=== PATIENT | male | born 1970 | race Caucasian/White ===

== ENCOUNTER 2018-09-30 18:43 | Emergency (ER) | payer OTHER ==
--- NOTE | 2018-09-30 18:53 | UC ---
Eye Complaint HPI - HPI Summary HPI Summary: Patient is a 47 year old gentleman , who presents today to the urgent care with right eye is pain for past 2 days. He reports that he was in [place] and on Sunday night he started noticing itchiness in the right eye and gradually it has become more swollen . Swelling has progressed to his right ear and has also started noticing a rash which is on the forehead, left elbow and on his penis. He takes valacyclovir daily as preventative for his cold sores. Denies any sick contact that he knows off. He is no monogamous relationship and his does not have any symptoms. He does have pain with eye movements. He has no fever , chills, cough, chest pain or shortness of breath. Denies any other symptoms. Denies any conjunctival redness, irritation, increased lacrimation. He reports that his vision is completely fine otherwise. - History of Current Complaint Stated Complaint: EYE COMPLAINT Time Seen by Provider: 09/30/18 18:45 Hx Obtained From: Patient - Allergies/Home Medications Allergies/Adverse Reactions: Allergies Allergy/AdvReac Type Severity Reaction Status Date / Time No Known Allergies Allergy Verified 09/30/18 18:55 PMH/Surg Hx/FS Hx/Imm Hx - Additional Past Medical History Additional PMH: Past Medical History : Hypertension, ulcerative colitis, GERD Past Surgical History: Hernia Family History : Noncontributory Social History : Occasional alcohol, former smoker, no drug use. works at [employer] . Previously Healthy: Yes - Social History Alcohol Use: Occasionally Substance Use Type: None Smoking Status (MU): Former Smoker Have You Smoked in the Last Year: No When Did the Patient Quit Smoking/Using Tobacco: quit 20 yrs ago Review of Systems All Other Systems Reviewed And Are Negative: Yes Constitutional: Positive: Negative Skin: Positive: Rash - Noticed on forehead, left elbow and penis Eyes: Positive: Other - Swelling of the eyelids. Negative: Blurred Vision, Diplopia, Drainage, Eye Redness, Photophobia ENT: Positive: Other - Swelling of the year Respiratory: Positive: Negative. Negative: Cough Cardiovascular: Positive: Negative Gastrointestinal: Positive: Negative Genitourinary: Positive: Negative Motor: Positive: Negative Neurovascular: Positive: Negative Musculoskeletal: Positive: Negative Neurological: Positive: Negative Psychological: Positive: Negative Is Patient Immunocompromised?: No Physical Exam - Summary Physical Exam Summary: Physical Exam: Const: Appears well. No signs of apparent distress present. Alert and oriented x 3. Musculo: Walks with a normal gait. Head/Face: Atraumatic, normocephalic on inspection. Swelling is noted on the right side of the upper half of the face, right eye lids and the right ear Eyes: EOMI and PERRLA in both eyes. Conjunctivae clear. No discharge noted . Extraocular motion is painful but complete ENT: Hearing normal, right ear pinnae is swollen. TM normal appearing bilaterally Respiratory: Respirations are unlabored. Lungs clear to auscultation bilaterally, no wheezing , rhonchi or rales noted . CVS: Regular rate and Rhythm, S1S2 normal , no murmurs identified. Extremities: Peripheral circulation is grossly normal. Pulses 2+ Abdomen : Soft non tender , nondistended , Bowel sounds present . No guarding , rebound tenderness or rigidity noted. Skin: Blanching vesicular rash is noted on the left elbow volar aspect- approximately 10 lesions noted- 2-3 mm in size. There is again papular/ vesicular rash noted on the forehead. On his penis there are lesions- grayish rounded noted on the ventral aspect, no active drainage. Neuro: Cranial nerves II to XII intact, motor and sensory intact. DTR Intact bilaterally. Mood is normal. Affect is normal. Triage Information Reviewed: Yes Vital Signs Reviewed: Yes Eye Complaint Course/Dx - Course Course Of Treatment: During the visit today, we discussed the findings. He likely has periorbital cellulitis spreading to his ear but the possibility of retro-orbital cellulitis cannot be completely ruled out since he has pain with eye movements. Patient needs additional testing, thus ER transfer advised and patient agrees. Report called to the ER provider( Calin Middleton MD) at [facility] , advised provider of the history, physical examination, and duration of illness and the need for definitive management. He will drive to [place] immediately . Patient expressed understanding . - Differential Dx/Diagnosis Provider Diagnosis: Preseptal cellulitis of right eye Discharge - Sign-Out/Discharge Documenting (check all that apply): Patient Departure All imaging exams completed and their final reports reviewed: No Studies - Discharge Plan Condition: Stable Disposition: HOME Patient Education Materials: Periorbital Cellulitis in Adults (ED) Referrals: Sylvie,Jaun, MD [Primary Care Provider] - Additional Instructions: Patient needs additional testing, thus ER transfer advised and patient agrees. Report called to the ER provider( Calin Middleton MD) at [facility] , advised provider of the history, physical examination, and duration of illness and the need for definitive management. - Billing Disposition and Condition Condition: STABLE Disposition: Home
[2018-09-30 18:54] VITALS: BP 156/91
== END 2018-09-30 19:28 | disposition home health service (06) ==
LOC: UCEAST 18:43
DX: L03.213 Periorbital cellulitis (principal); I10 Essential (primary) hypertension; K21.9 Gastro-esophageal reflux disease without esophagitis; Z87.891 Personal history of nicotine dependence
CPT/HCPCS: 99212; G0463

== ENCOUNTER → 2018-09-30 19:46 | Emergency (ER) | payer OTHER ==
[~2018-09-30 19:46] MED LIST: ValACYclovir (*) 1 GM TAB PO ONE; hydrOXYzine HCL TAB* 25 MG PO ONE
--- NOTE | 2018-09-30 20:18 | ED ---
Throat Pain/Nasal Congestion - HPI Summary HPI Summary: This patient is a 47 year old male presenting to [facility] with right eyelid edema, prurtitis, and pain since 12 hours ago. He states he was sleeping in a hotel room bed when this started and is atraumatic. He states he was previously seen at urgent care and diagnosed with periorbital cellulites. The patient also reports right ear edema. The patient is currently taking an immuno-suppressant drug. The patient rates his pain 3/10 in severity. Balsalazide Sodium CAP(NF) [Colazal CAP(NF)] 3 cap PO TID 02/05/17 [History Confirmed 09/30/18] Omeprazole CAP (NF) [Prilosec CAP* 20 MG] 20 mg PO DAILY 02/05/17 [History Confirmed 09/30/18] Ramipril CAP* [Altace CAP*] 5 mg PO DAILY 02/05/17 [History Confirmed 09/30/18] ValACYclovir (*) [Valtrex 500 mg (*)] 500 mg PO DAILY 02/05/17 [History Confirmed 09/30/18] inFLIXimab* [Remicade*] 500 mg PO SEE INSTRUCTIONS 02/05/17 [History Confirmed 09/30/18] - History of Current Complaint Chief Complaint: EDEyeProblem Time Seen by Provider: 09/30/18 20:09 Hx Obtained From: Patient Onset/Duration: Sudden Onset, Lasting Hours - Allergies/Home Medications Allergies/Adverse Reactions: Allergies Allergy/AdvReac Type Severity Reaction Status Date / Time No Known Allergies Allergy Verified 09/30/18 19:56 PMH/Surg Hx/FS Hx/Imm Hx Endocrine/Hematology History: Denies: Hx Diabetes Cardiovascular History: Reports: Hx Hypertension - Surgical History Surgery Procedure, Year, and Place: hernia Infectious Disease History: No Infectious Disease History: Denies: Traveled Outside the [place] in Last 30 Days - Family History Known Family History: Positive: Other - Parkinsons, Alzheimers - Social History Alcohol Use: Occasionally Substance Use Type: Reports: None Smoking Status (MU): Former Smoker Have You Smoked in the Last Year: No Review of Systems Positive: Other - Eyelid pain, ear edema, eyelid edema, eyelid pruritis. Positive: Rash All Other Systems Reviewed And Are Negative: Yes Physical Exam - Summary Physical Exam Summary: VITAL SIGNS: Reviewed. GENERAL: Patient is a well-developed and nourished MALE who is lying comfortable in the stretcher. Patient is not in any acute respiratory distress. HEAD AND FACE: No signs of trauma. No ecchymosis, hematomas or skull depressions. No sinus tenderness. EYES: PERRLA, EOMI x 2, No injected conjunctiva, no nystagmus. EARS: Hearing grossly intact. Ear canals and tympanic membranes are within normal limits. MOUTH: Oropharynx within normal limits. NECK: Supple, trachea is midline, no adenopathy, no JVD, no carotid bruit, no c- spine tenderness, neck with full ROM CHEST: Symmetric, no tenderness at palpation LUNGS: Clear to auscultation bilaterally. No wheezing or crackles. CVS: Regular rate and rhythm, S1 and S2 present, no murmurs or gallops appreciated. ABDOMEN: Soft, non-tender. No signs of distention. No rebound no guarding, and no masses palpated. Bowel sounds are normal. EXTREMITIES: FROM in all major joints, no edema, no cyanosis or clubbing. NEURO: Alert and oriented x 3. No acute neurological deficits. Speech is normal and follows commands. SKIN: Dry and warm. Fine vesicular rash with pruritus on the right side of the face including over the right eyelid without global involvement, does not cross the midline. Patient also has similar lesions over the left anticubital fossa. Triage Information Reviewed: Yes Vital Signs On Initial Exam: Initial Vitals Temp Pulse Resp BP Pulse Ox 97.9 F 77 16 152/105 96 09/30/18 19:52 09/30/18 19:52 09/30/18 19:52 09/30/18 19:52 09/30/18 19:52 Vital Signs Reviewed: Yes Diagnostics - Vital Signs Vital Signs Temp Pulse Resp BP Pulse Ox 09/30/18 19:52 97.9 F 77 16 152/105 96 - Laboratory Lab Statement: Any lab studies that have been ordered have been reviewed, and results considered in the medical decision making process. EENT Course/Dx - Course Course Of Treatment: This patient is a 47 year old male presenting to [facility] with right eyelid edema, prurtitis, and pain since 12 hours ago. The physical exam was remarkable for shingles. Patient has Hx of ulcerative colitis. Patient has Hx of Herpes Zoster. Patient has recently taken remicade. Remicade makes the patient more susceptible to shingles. Because the vesicular rash did not cross the midline, this presentation is consistent with shingles. This patient will be given antiviral medication to treat this condition. A plan for discharge was discussed with the patient and he was agreeable with this plan. - Diagnoses Provider Diagnoses: Shingles Discharge - Sign-Out/Discharge Documenting (check all that apply): Patient Departure - Discharge Patient Received Moderate/Deep Sedation with Procedure: No - Discharge Plan Condition: Stable Disposition: HOME Prescriptions: hydrOXYzine HCL TAB* [Atarax 25 MG TAB*] 25 mg PO TID PRN #20 tab PRN Reason: Itching ValACYclovir (*) [Valtrex 1 GM(*)] 1 gm PO TID #21 tab Patient Education Materials: Shingles (ED) Referrals: Jaun Mercer MD [Primary Care Provider] - Additional Instructions: Return to ED with any new or worsening symptoms. - Attestation Statements Document Initiated by Scribe: Yes Documenting Scribe: Gonzalez Corcoran Provider For Whom Lawrenceibe is Documenting (Include Credential): Vinny Khanna MD Scribe Attestation: Gonzalez Orozco, scribed for Vinny Khanna MD on 09/30/18 at 2054. Status of Scribe Document: Ready
[2018-09-30 21:14] VITALS: BP 110/73
== END | disposition home or self-care (01) ==
LOC: ED 19:46
DX: B02.9 Zoster without complications (principal); R60.0 Localized edema; I10 Essential (primary) hypertension; Z87.891 Personal history of nicotine dependence; R21 Rash and other nonspecific skin eruption
CPT/HCPCS: 99282; A9270-GY